=== PATIENT | female | born 1940 ===

== ENCOUNTER → 2018-03-12 15:39 | Outpatient (CLI) | payer MEDICARE ==
[2018-03-12 15:53] LABS: APPEARANCE CLEAR (CLEAR); BILIRUBIN NEGATIVE (NEGATIVE); COLOR DK YELLOW (YELLOW); GLUCOSE NEGATIVE (NEGATIVE); KETONE NEGATIVE (NEGATIVE); NITRITE NEGATIVE (NEGATIVE); PROTEIN NEGATIVE (NEGATIVE); UROBILINOGEN NORMAL (NORMAL)
[2018-03-12 15:55] LABS: BACTERIA FEW /hpf (NONE SEEN); RED CELLS - URINE 0-5 /hpf (0-5); WHITE CELLS - URINE 0-5 /hpf (0-5)
== END | disposition home or self-care (01) ==
LOC: D.LABREF 15:39
PROVIDERS: Internal Medicine
DX: N32.81 Overactive bladder (principal); Z87.440 Personal history of urinary (tract) infections

== ENCOUNTER → 2018-04-23 19:16 | Outpatient (CLI) | payer MEDICARE ==
[2018-04-23 20:21] LABS: APPEARANCE CLEAR (CLEAR); BILIRUBIN NEGATIVE (NEGATIVE); COLOR STRAW (YELLOW); GLUCOSE NEGATIVE (NEGATIVE); KETONE NEGATIVE (NEGATIVE); NITRITE NEGATIVE (NEGATIVE); PROTEIN NEGATIVE (NEGATIVE); UROBILINOGEN NORMAL (NORMAL)
== END | disposition home or self-care (01) ==
LOC: D.LABREF 19:16
PROVIDERS: Internal Medicine
DX: I10 Essential (primary) hypertension (principal); N32.81 Overactive bladder